=== PATIENT | female | born 1980 | race Caucasian/White ===

== ENCOUNTER 2017-10-22 17:48 | Emergency (ER) | payer BC ==
[~2017-10-22] VITALS: Ht 170.2 cm; Wt 69.4 kg
[2017-10-22] MEDS ORDERED: ZANTAC 150MG T150 MG PO (18:12)
[2017-10-22] MEDS ORDERED: IRON325 PO (18:12)
[2017-10-22 18:46] LABS: ABSOLUTE BASOPHILS 0.1 thou/uL (0.0-0.2); ABSOLUTE EOSINOPHILS 0.1 thou/uL (0.0-0.7); ABSOLUTE LYMPHOCYTES 2.4 thou/uL (0.8-5.3); ABSOLUTE MONOCYTES 0.9 thou/uL (0.0-1.2); ABSOLUTE NEUTROPHILS 4.6 thou/uL (1.6-8.1); BASOPHILS 0.8 %; EOSINOPHILS 1.5 %; HEMOGLOBIN 11.8 gm/dL (12.0-15.0); MCHC 33.7 g/dL (28.0-37.0); MONOCYTES 10.9 %; MPV 9.4 fl. (7.2-11.1); NUCLEATED RBCS 0 /100WBC; PLATELET COUNT* 266 thou/uL (150-400); POLYS 56.8 %; RBC 3.81 mil/uL (4.20-5.00); RDW-CV 13.2 % (10.5-14.5); WBC 8.1 thou/uL (4.0-11.0)
[2017-10-22 18:54] LABS: CALCIUM 8.9 mg/dL (8.5-10.1); CREATININE 0.8 mg/dL (0.6-1.3); POTASSIUM 3.7 mmol/L (3.5-5.1)
[2017-10-22 19:43] VITALS: BP 111/64
== END 2017-10-22 19:43 | disposition left against medical advice (07) ==
LOC: M.ERS 17:48
PROVIDERS: Physician Assistant
DX: N99.821 Postprocedural hemorrhage of a genitourinary system organ or structure following other procedure (principal); Z90.710 Acquired absence of both cervix and uterus